=== PATIENT | female | born 1945 | race Caucasian/White ===

== ENCOUNTER 2017-06-27 07:49 | Day surgery (SDC) | payer OTHER ==
[2017-06-27] MEDS ORDERED: NS 500 ML IV 500 ML IV ONE (08:43)
[2017-06-27] MEDS ORDERED: TETRACAINE 0.5% OPHTH 1 DOSE AFFEYE ONE ×6 (08:45→12:51)
[2017-06-27] MEDS ORDERED: VIGAMOX 0.5% OPHTH 1 DOSE AFFEYE ONE ×4 (08:46→13:00)
[2017-06-27] MEDS ORDERED: PROLENSA OPHTH 1 DOSE AFFEYE ONE (08:57)
[2017-06-27] MEDS ORDERED: ALPHAGAN-P OPHTH 1 DOSE AFFEYE ONE (08:58)
[2017-06-27] MEDS ORDERED: MYDRIACIL OPHTH 1 DOSE AFFEYE ONE ×4 (08:59→09:02)
[2017-06-27] MEDS ORDERED: CYCLOGYL 1% OPHTH 1 DOSE OP ONE ×4 (08:59→09:02)
[2017-06-27] MEDS ORDERED: AK-DILATE 2.5% OPHTH 1 DOSE OP ONE ×4 (08:59→09:02)
[2017-06-27] MEDS: VERSED ONE ×3 (12:08→12:20)
[2017-06-27] MEDS ORDERED: AK-DILATE 10% OPHTH 1 DOSE AFFEYE ONE ×2 (12:12→12:31)
[2017-06-27] MEDS ORDERED: BETADINE OPHTH SOLN 5% EACHEYE ONE (12:45)
[2017-06-27] MEDS ORDERED: DUOVISC IO ONE (12:54)
[2017-06-27] MEDS ORDERED: XYLOCAINE-MPF 1% IJ ONE (12:54)
[2017-06-27] MEDS ORDERED: BSS OPHTH (PLAIN) 500 ML with VANCOMYCIN HCL 500 MG VIAL 25 MG, ADRENALINE CHL INJ 1 MG IR ONE ×3 (12:54)
[2017-06-27] MEDS ORDERED: ADRENALINE CHL INJ IJ ONE (12:54)
[2017-06-27 13:47] VITALS: BP 176/88
[2017-06-27] MEDS ORDERED: DIPRIVAN VIAL ONE (15:56)
== END 2017-06-27 13:38 | disposition home or self-care (01) ==
LOC: SURG1 07:49
PROVIDERS: ATTEND Ophthalmology
PROC: 08DK3ZZ Extraction of Left Lens, Percutaneous Approach (ICD-10-PCS; principal; 2017-06-27 14:45)
PROC: 08RK3JZ Replacement of Left Lens with Synthetic Substitute, Percutaneous Approach (ICD-10-PCS; principal; 2017-06-27 14:45)
DX: H25.12 Age-related nuclear cataract, left eye (principal); H25.012 Cortical age-related cataract, left eye; H52.222 Regular astigmatism, left eye
CPT/HCPCS: 99100; A4217; J0170; J2250; J3370; J3490

== ENCOUNTER 2017-08-01 07:12 | Day surgery (SDC) | payer OTHER ==
[2017-08-01] MEDS ORDERED: TETRACAINE 0.5% OPHTH 1 DOSE AFFEYE ONE ×4 (07:30→09:06)
[2017-08-01] MEDS ORDERED: NS 1/2 1000 ML IV 500 ML IV ONE (07:30)
[2017-08-01] MEDS ORDERED: NS 500 ML IV 500 ML IV ONE (07:34)
[2017-08-01] MEDS ORDERED: VIGAMOX 0.5% OPHTH 1 DOSE AFFEYE ONE ×5 (07:35→09:39)
[2017-08-01] MEDS ORDERED: VERSED ONE (07:40)
[2017-08-01] MEDS ORDERED: AK-DILATE 10% OPHTH 1 DOSE AFFEYE ONE ×3 (07:46→09:11)
[2017-08-01] MEDS ORDERED: PROLENSA OPHTH 1 DOSE AFFEYE ONE (07:46)
[2017-08-01] MEDS ORDERED: VERSED IVP ONE ×4 (07:47→09:10)
[2017-08-01] MEDS ORDERED: ALPHAGAN-P OPHTH 1 DOSE AFFEYE ONE (07:47)
[2017-08-01] MEDS ORDERED: CYCLOGYL 1% OPHTH 1 DOSE OP ONE ×3 (07:48→07:50)
[2017-08-01] MEDS ORDERED: MYDRIACIL OPHTH 1 DOSE AFFEYE ONE ×3 (07:48→07:50)
[2017-08-01] MEDS ORDERED: AK-DILATE 2.5% OPHTH 1 DOSE OP ONE ×3 (07:48→07:50)
[2017-08-01] MEDS ORDERED: BETADINE OPHTH SOLN 5% EACHEYE ONE (09:17)
[2017-08-01] MEDS ORDERED: XYLOCAINE-MPF 1% IJ ONE (09:28)
[2017-08-01] MEDS ORDERED: ADRENALINE CHL INJ IJ ONE (09:28)
[2017-08-01] MEDS ORDERED: BSS OPHTH (PLAIN) 500 ML with VANCOMYCIN HCL 500 MG VIAL 25 MG, ADRENALINE CHL INJ 1 MG IR ONE ×3 (09:28)
[2017-08-01] MEDS ORDERED: DUOVISC IO ONE (09:28)
[2017-08-01 10:03] VITALS: BP 143/65
== END 2017-08-01 10:00 | disposition home or self-care (01) ==
LOC: SURG1 07:12
PROVIDERS: ATTEND Ophthalmology
PROC: 08RJ3JZ Replacement of Right Lens with Synthetic Substitute, Percutaneous Approach (ICD-10-PCS; principal; 2017-08-01 07:30)
PROC: 08DJ3ZZ Extraction of Right Lens, Percutaneous Approach (ICD-10-PCS; principal; 2017-08-01 07:30)
DX: H25.011 Cortical age-related cataract, right eye (principal); H25.11 Age-related nuclear cataract, right eye; H52.221 Regular astigmatism, right eye
CPT/HCPCS: 99100; A4217; J0170; J2250; J3370

== ENCOUNTER 2017-12-11 12:12 | Emergency (ER) | payer OTHER ==
[2017-12-11 12:18] VITALS: BP 173/78; BMI 31.4
--- NOTE | 2017-12-11 12:41 | DR.EXTPAIN ---
HPI - Time seen Time seen: 12:40 - PCP Primary Care Physician: judi - Complaint/Symptoms Chief Complaint Doctor Comments: Patient injured her left foot while at home this morning on an object. Now the left foot is swollen and ecchymotic. The skin is intack. Chief Complaint:: pt was out side and her left foot scraped on a bench. noted swelling and left foot is discolored. - Source History Provided: Patient - Mode of arrival Mode of Arrival: Wheelchair - Timing Onset of Chief Complaint: 12/11/17 PMH - PMH Past Medical History: Yes Past Medical History: Arthritis, Depression, Diabetes, Dyslipidemia, Hypertension, Hypothyroidism, Kidney Stones Past Surgical History: Yes Surgical History: Hysterectomy, Ortho Surgery - Family History History of Family Medical Conditions: Yes Family Medical History: Diabetes Mellitus, Hypertension - Social History Does patient currently use any type of tobacco product: No Have you used tobacco products in the last 12 months: No Type of Tobacco Use: None Does any household member use tobacco: No Alcohol Use: None Do you use any recreational Drugs:: No Lives With: Alone Lives Where: Home - infectious screening In the last 2 months have you had wt loss of >10#?: NO Have you had fever, night sweats or hemotysis?: No Have you traveled outside the country in the last 6 months?: No Isolation: Standard ROS - Review of Systems Eyes: No Symptoms Reported ENTM: No Symptoms Reported Respiratoy: No Symptoms Reported Cardiovascular: No Symptoms Reported Gastrointestinal/Abdominal: No Symptoms Reported Genitourinary: No Symptoms Reported Neurological: No Symptoms Reported Musculoskeletal: Left (foot swollen) Integumentary: Change in Color Hematologic/Lymphatic: No Symptoms Reported Endocrine: No Symptoms Reported Psychiatric: No Symptoms Reported All Other Systems: Reviewed and Negative PE - Vital Signs Vitals: Temperature 98.9 F Pulse Rate 104 Respiratory Rate 96 Blood Pressure [Right Arm] 162/73 Blood Pressure [Left Arm] 133/60 Blood Pressure [Sitting] 104/49 Blood Pressure [Lying] 100/51 Blood Pressure 173/78 O2 Sat by Pulse Oximetry 97 - General General Appearance: Alert, In No Apparent Distress - Head Head Exam: Normal Inspection, Atraumatic - Eyes Eye exam: Normal Appearance, PERRL, EOMI - ENT ENT Exam: Normal Exam - Neck Neck Exam: Normal Inspection, Full ROM - Chest Chest Inspection: Normal Inspection - Respiratory Respiratory Exam: Normal Lung Sounds Bilat Respiratory Exam: Bilateral Clear to Auscultation - Cardiovascular Cardiovascular Exam: Regular Rate, Normal Rhythm - Abdominal Exam Abdominal Exam: Normal Inspection, Normal Bowel Sounds Abdominal Tenderness: negative: RUQ, RLQ, LUQ, LLQ, Epigastrium, Suprapubic, Diffuse, Mild, Moderate, Severe, Other - Extremities Extremities Exam: Normal Inspection - Upper Extremities Shoulder Exam: Normal Inspection Arm Exam: Normal Inspection Elbow Exam: Normal Inspection Forearm Exam: Normal Inspection Hand Exam: Normal Inspection Neuromotor Exam: Normal Exam Neurosensory Exam: Normal Exam Hand Tendon Exam: Flexor Digitorium Profundus (Location) Upper Ext. Vascular Exam: Capillary Refill - Lower Extremities Hip/Pelvis Exam: Normal Inspection, Full ROM Upper Leg Exam: Normal Inspection Knee Exam: Normal Inspection Lower Leg Exam: Normal Inspection Ankle Exam: Normal Inspection Foot/Toe Exam: Swelling, Dislocation (left foot) Neurovascular/Tendon Exam: Normal Capillary Refill Gait Exam: Observed and Normal - Back Back Exam: Normal Inspection, Full ROM - Psychiatric Psychiatric Exam: Normal Affect, Normal Mood - Skin Skin Exam: Warm, Dry, Intact ROR - XRAY XRAY Interpreted by: Radiologist (Left Foot: sOFT TISSUE SWELLING OVER THE DORSUM OF THE FOOT. dEGENERATIVE CHANGES IN MIDFOOT. NO ACUTE BONY ABNORMALITIES IDENTIFIED.) - Diagnosis Discharge Problem: Left mid foot degenerative changes Contusion of left foot Qualifiers: Encounter type: initial encounter Qualified Code(s): S90.32XA - Contusion of left foot, initial encounter - Discharge Plan Condition: Stable - Follow ups/Referrals Follow ups/Referrals: Wilian Edward [Primary Care Provider] - 3 days - Instructions
--- NOTE | 2017-12-11 12:45 | RAD ---
HISTORY: Status post fall. Twisting injury to left foot. Study: Left foot: Three views Comparison: None Findings: Tarsal, metatarsal and phalangeal alignment is normal. Mild degenerative changes present in the 1st metatarsal-phalangeal joint. Mild is noted in a few of the interphalangeal joints of the toes. Evid ence for previous trauma to the medial malleolus is present. Moderately severe soft tissue swelling is noted over the dorsum of the foot. Minimal degenerative changes present in the midfoot. A small to moderate size calcaneal spur is present. Mild enthesopathy is noted at the Achilles tendon insert ion. IMPRESSION: 1. Soft tissue swelling over the dorsum of the foot. 2. Degenerative changes as noted. 3. No acute bony abnormalities are identified. Reported By:
== END 2017-12-11 13:10 | disposition home or self-care (01) ==
LOC: ER 12:21
DX: S90.32XA Contusion of left foot, initial encounter (principal); M19.071 Primary osteoarthritis, right ankle and foot; W22.8XXA Striking against or struck by other objects, initial encounter; Y92.009 Unspecified place in unspecified non-institutional (private) residence as the place of occurrence of the external cause
CPT/HCPCS: 73630; 99282